=== PATIENT | female | born 1985 | race Caucasian/White ===

== ENCOUNTER 2017-09-07 18:07 | Emergency (ER) | payer OTHER ==
[~2017-09-07] VITALS: Wt 131.0 kg
[2017-09-07] MEDS ORDERED: NAPR-260 PO (19:50)
[2017-09-07 20:09] VITALS: BP 142/81; PULSE 70; RESP 20; TEMP 98.7
--- NOTE | 2017-09-07 22:03 | ERD ---
ER Documentation Chief Complaint Chief Complaint mech fall last night, hit head, no ko, also c/o neck and back pain. HPI 31-year-old female complaining of neck pain after mechanical fall history. She states she walked in the kitchen while the floors away and slipped. Patient states she hit frontal lobe on floor. Denies loss of consciousness. Denies vomiting. Denies headaches. States that she wanted to evaluated because she is having diffuse neck pain after incident. Incident happened yesterday. Slept without difficulty. Denies vomiting. Has not taken medications for symptoms. ROS All systems reviewed and are negative except as per history of present illness. Medications Home Meds Active Scripts Naproxen* (Naprosyn*) 500 Mg Tablet, 500 MG PO BID Y for PAIN AND/OR INFLAMMATION, #30 TAB Prov:ALBIN VANESSA PA-C 09/07/17 PMhx/Soc Medical and Surgical Hx: pt denies Medical Hx History of Surgery: Yes (csections) Hx Alcohol Use: No Hx Substance Use: No Hx Tobacco Use: Yes Smoking Status: Light tobacco smoker Physical Exam Vitals Vital Signs Date Time Temp Pulse Resp B/P Pulse Ox O2 Delivery O2 Flow Rate FiO2 09/07/17 20:09 98.7 70 20 142/81 99 Room Air 09/07/17 18:11 99.6 68 20 146/80 98 Physical Exam GENERAL: The patient is well-appearing, well-nourished, in no acute distress HEENT: Atraumatic. Conjunctivae are pink. Pupils equal, round, and reactive to light. There is no scleral icterus. Tympanic membranes clear bilaterally. Oropharynx clear. No nystagmus or photophobia. NECK: C-spine is soft and supple. There is no meningismus. There is no cervical lymphadenopathy. Mild tenderness palpation over trapezius muscles. CHEST: Clear to auscultation bilaterally. There are no rales, wheezes or rhonchi. HEART: Regular rate and rhythm. No murmurs, clicks, rubs or gallops. No S3 or S4. BACK: No midline or flank tenderness. Tender to palpation over paraspinous muscles. EXTREMITIES: Equal pulses bilaterally. There is no peripheral clubbing, cyanosis or edema. No focal swelling or erythema. Full range of motion. Grossly neurovascularly intact. NEUROLOGIC: Alert and oriented. Cranial nerves II through XII intact. Motor strength in all 4 extremities with 5 out of 5 strength. Sensation grossly intact. Normal speech and gait. Babinski negative. DTR 2+ throughout. SKIN: No lacerations or abrasions. No ecchymotic changes or hematomas. Procedures/MDM MDM: 31-year-old female complaining of musculoskeletal strain. I have low suspicion for acute fracture dislocation. I have low suspicion for neurodeficit. Patient's exams are within normal limits. I do not feel that ridging is indicated at today's visit. Patient's exam is non-concerning and patient is nontoxic-appearing. I feel the patient likely sustained musculoskeletal strain and will be recommended to take medication for pain. All questions answered at discharge. Departure Diagnosis: Primary Impression: Musculoskeletal strain Condition: Stable Patient Instructions: Muscle Strain, Extremity Additional Instructions: FOLLOW UP WITH YOUR PRIMARY CARE PHYSICIAN TOMORROW.Return to this facility if you are not improving as expected. ALBIN VANESSA PA-C Sep 07, 2017 22:03
== END 2017-09-07 20:09 | disposition home or self-care (01) ==
LOC: FTE 18:07
DX: S16.1XXA Strain of muscle, fascia and tendon at neck level, initial encounter (principal); F17.210 Nicotine dependence, cigarettes, uncomplicated; W01.0XXA Fall on same level from slipping, tripping and stumbling without subsequent striking against object, initial encounter; Y92.000 Kitchen of unspecified non-institutional (private) residence as the place of occurrence of the external cause
CPT/HCPCS: 99283